=== PATIENT | male | born 1985 | race Caucasian/White ===

== ENCOUNTER 2017-05-28 10:04 | Emergency (ER) | payer SELFPAY ==
[2017-05-28 10:10] VITALS: BP 131/78
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
[2017-05-28] MEDS ORDERED: HYDROcodone/ACETAMIN 5-325 MG* 1 TAB PO ONE (11:11)
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
--- NOTE | 2017-05-28 19:49 | UC ---
Progress - Progress Note Progress Note: cat pt at listed contact to attempt again to persudae pt to go to ed. no longer living there. called mother. she said she was on her way to take him to the hospital for worsening sx. encouraged decision. Re-Evaluation - Re-Evaluation 1 Re-Evaluation Time: 12:14 Change: Unchanged Comment: Placing combinatiom sugar tong thumb spica splint, well padded, well molded.
== END 2017-05-28 12:31 | disposition home or self-care (01) ==
LOC: UCEAST 10:04
DX: S52.571A Other intraarticular fracture of lower end of right radius, initial encounter for closed fracture (principal); V48.6XXA Car passenger injured in noncollision transport accident in traffic accident, initial encounter; Y93.89 Activity, other specified; Y92.410 Unspecified street and highway as the place of occurrence of the external cause; R03.0 Elevated blood-pressure reading, without diagnosis of hypertension; R26.81 Unsteadiness on feet; R51 Headache; R53.83 Other fatigue; M25.571 Pain in right ankle and joints of right foot; H73.891 Other specified disorders of tympanic membrane, right ear; Z88.0 Allergy status to penicillin; F17.210 Nicotine dependence, cigarettes, uncomplicated
CPT/HCPCS: 99212; G0463

== ENCOUNTER 2017-05-28 20:12 | Emergency (ER) | payer SELFPAY ==
[2017-05-28] MEDS ORDERED: HYDROcodone/ACETAMIN 5-325 MG* 1 TAB PO ONE (20:29)
[2017-05-28 21:05] VITALS: BP 133/75
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
== END 2017-05-28 21:04 | disposition home or self-care (01) ==
LOC: ED 20:12
DX: S09.90XA Unspecified injury of head, initial encounter (principal); I10 Essential (primary) hypertension; F17.210 Nicotine dependence, cigarettes, uncomplicated; V48.4XXA Person boarding or alighting a car injured in noncollision transport accident, initial encounter; Y92.9 Unspecified place or not applicable; M79.601 Pain in right arm; H92.01 Otalgia, right ear; Z88.0 Allergy status to penicillin
CPT/HCPCS: 99282

== ENCOUNTER 2018-01-21 17:05 | Emergency (ER) | payer SELFPAY ==
[2018-01-21] MEDS ORDERED: Ketorolac INJ* 30 MG/ML 1 ML VIAL IM ONE (18:14)
[2018-01-21] MEDS ORDERED: Clindamycin CAP* 150 MG PO ONE (18:14)
--- NOTE | 2018-01-21 18:19 | ED ---
Throat Pain/Nasal Congestion - HPI Summary HPI Summary: 32-year-old male presents with left upper dental pain for the past couple hours. He states that the area has been swelling. he denies any fevers. He denies any pain with eye movement. He denies any chest pain or shortness breath. He has been taking ibuprofen for minimal relief. He has history of bad teeth. He does not currently have a dentist. able to eat and drink okay. - History of Current Complaint Chief Complaint: EDDentalPain Time Seen by Provider: 01/21/18 17:43 - Allergies/Home Medications Allergies/Adverse Reactions: Allergies Allergy/AdvReac Type Severity Reaction Status Date / Time Penicillins Allergy Swelling Verified 01/21/18 17:34 Of Face,Lips,& Throat PMH/Surg Hx/FS Hx/Imm Hx Endocrine/Hematology History: Denies: Hx Diabetes Cardiovascular History: Reports: Hx Hypertension Sensory History: Denies: Hx Legally Blind, Hx Deafness Opthamlomology History: Denies: Hx Legally Blind - Surgical History Surgery Procedure, Year, and Place: T&A- 1995, clef palate. Broken back in 2007 Infectious Disease History: No Infectious Disease History: Denies: Hx Hepatitis, Traveled Outside the [place] in Last 30 Days - Family History Known Family History: Positive: Cardiac Disease, Hypertension, Diabetes, Other - CVA - father at 53 - Social History Alcohol Use: None Alcohol Amount: 3-12 beers/day Substance Use Type: Reports: Other Substance Use Comment - Amount & Last Used: suboxone occassionally Smoking Status (MU): Heavy Every Day Tobacco Smoker Type: Cigarettes Amount Used/How Often: 1/2 ppd Length of Time of Smoking/Using Tobacco: since age 13 Have You Smoked in the Last Year: Yes Review of Systems Negative: Fever Positive: Dental Pain Negative: Chest Pain Negative: Shortness Of Breath All Other Systems Reviewed And Are Negative: Yes Physical Exam Triage Information Reviewed: Yes Vital Signs On Initial Exam: Initial Vitals Temp Pulse Resp BP Pulse Ox 98.4 F 73 16 136/71 100 01/21/18 17:31 01/21/18 17:31 01/21/18 17:31 01/21/18 17:31 01/21/18 17:31 Vital Signs Reviewed: Yes Appearance: Positive: Well-Appearing Skin: Positive: Warm, Dry Head/Face: Positive: Normal Head/Face Inspection Eyes: Positive: Normal, Conjunctiva Clear Dental: Positive: Percussion Tenderness @ - 11, Gross Decay/Caries @ - throughout, Other - swelling left side of face, no swelling above eyes. Negative: Abscess @ Neck: Positive: Supple, Nontender, No Lymphadenopathy Respiratory/Lung Sounds: Positive: Clear to Auscultation, Breath Sounds Present Cardiovascular: Positive: Normal, RRR Musculoskeletal: Positive: Normal Neurological: Positive: Normal Psychiatric: Positive: Normal Diagnostics - Vital Signs Vital Signs Temp Pulse Resp BP Pulse Ox 01/21/18 17:31 98.4 F 73 16 136/71 100 - Laboratory Lab Statement: Any lab studies that have been ordered have been reviewed, and results considered in the medical decision making process. EENT Course/Dx - Course Course Of Treatment: 32-year-old male presents with left upper dental pain for the past couple hours. He states that the area has been swelling. he denies any fevers. He denies any pain with eye movement. He denies any chest pain or shortness breath. He has been taking ibuprofen for minimal relief. He has history of bad teeth. He does not currently have a dentist. able to eat and drink okay. On exam has tenderness tooth 9. Has swelling but no abscess felt. We will treat with clindamycin and gave some pain medication. Patient understands agrees with plan. - Differential Diagnoses Differential Diagnoses: Dental Abscess, Dental Caries, Fractured Tooth - Diagnoses Provider Diagnoses: Dental infection Discharge - Sign-Out/Discharge Documenting (check all that apply): Discharge/Admit/Transfer - Discharge Plan Condition: Good Disposition: HOME Prescriptions: Clindamycin Cap(NF) [Clindamycin Cap 300 mg Cap(NF)] 300 mg PO TID #29 cap traMADol TAB* [Ultram*] 25 mg PO Q6HR PRN #8 tab MDD 4 PRN Reason: Pain Patient Education Materials: Dental Abscess (ED) Forms: *Work Release Referrals: [facility] [place] [place] [Outside] Additional Instructions: Take antibiotics: three times a day for 10 days take ibuprofen every 6 hours for pain, use narcotic for break through pain Avoid hard, crunchy food until seen by dentist Return to ED if develop fever, shortness of breath, pain with eye movement or any new or worsening symptoms Establish care with primary care physician and dentist as soon as possible - Billing Disposition and Condition Condition: GOOD Disposition: HOME Images - Images Dental: 1 - pain
[2018-01-21] MEDS ORDERED: Ketorolac INJ* 30 MG/ML 1 ML VIAL ONE (18:37)
[2018-01-21 19:17] VITALS: BP 154/86
== END 2018-01-21 19:16 | disposition home or self-care (01) ==
LOC: ED 17:05
DX: K04.7 Periapical abscess without sinus (principal); F17.210 Nicotine dependence, cigarettes, uncomplicated; I10 Essential (primary) hypertension
CPT/HCPCS: 96372; 99282; A9270-GY; J1885